=== PATIENT | male | born 1990 | race African-American/Black ===

== ENCOUNTER 2017-10-11 11:06 | Emergency (ER) | payer OTHER ==
[~2017-10-11] VITALS: Ht 160 cm; Wt 52.7 kg
[2017-10-11] MEDS ORDERED: VALACYCLOVIR1000 MG PO (15:03)
[2017-10-11] MEDS ORDERED: FLEXERIL10 MG PO (15:03)
[2017-10-11] MEDS ORDERED: MOTRIN800 MG PO (15:03)
[2017-10-11] MEDS ORDERED: MUPIROCIN22 GM TP (15:04)
[2017-10-11 15:24] VITALS: BP 126/82
== END 2017-10-11 15:32 | disposition home or self-care (01) ==
LOC: EME 11:06
DX: M54.6 Pain in thoracic spine (principal); A60.01 Herpesviral infection of penis; X50.0XXA Overexertion from strenuous movement or load, initial encounter; Y92.512 Supermarket, store or market as the place of occurrence of the external cause; Y99.0 Civilian activity done for income or pay
CPT/HCPCS: 99281; 99284

== ENCOUNTER 2017-12-15 16:06 | Emergency (ER) | payer OTHER ==
[~2017-12-15] VITALS: Ht 160 cm; Wt 53.3 kg
[~2017-12-15 16:06] MED LIST: FLEXERIL10 MG PO; MOTRIN800 MG PO; MUPIROCIN22 GM TP; VALACYCLOVIR1000 MG PO
[2017-12-15] MEDS ORDERED: MOTRIN600 MG PO (17:23)
[2017-12-15 18:08] VITALS: BP 115/80
== END 2017-12-15 18:08 | disposition home or self-care (01) ==
LOC: EME 16:06
DX: M79.674 Pain in right toe(s) (principal); R93.6 Abnormal findings on diagnostic imaging of limbs
CPT/HCPCS: 73630; 99281; 99283

== ENCOUNTER 2018-03-20 05:12 | Emergency (ER) | payer SELFPAY ==
[~2018-03-20] VITALS: Ht 160 cm; Wt 53.8 kg
[~2018-03-20 05:12] MED LIST changes: +MOTRIN600 MG PO
[2018-03-20 07:43] VITALS: BP 133/90
== END 2018-03-20 07:44 | disposition home or self-care (01) ==
LOC: EME 05:12
DX: S40.029A Contusion of unspecified upper arm, initial encounter (principal); S20.219A Contusion of unspecified front wall of thorax, initial encounter; Y04.8XXA Assault by other bodily force, initial encounter; Y07.59 Other non-family member, perpetrator of maltreatment and neglect
CPT/HCPCS: 71046; 73060; 73090; 99281; 99284